=== PATIENT | male | born 1970 | race Caucasian/White ===

== ENCOUNTER 2018-04-04 20:49 | Emergency (ER) | payer OTHER ==
[~2018-04-04] VITALS: Ht 167.6 cm; Wt 72.6 kg
[~2018-04-04 20:49] MED LIST: ACET325 PO; Aspir-Low81 MG PO; CARV6.25 PO; CYCL10 PO; FURO40 PO; HYDACE5 PO; HYDPAM25 PO; LISI20 PO; Norco 5-325 Ta1 EACH PO; SPIR50 PO
[2018-04-04] MEDS ORDERED: Coreg12.5 MG PO (22:19)
[2018-04-04] MEDS ORDERED: Lasix40 MG PO (22:19)
[2018-04-04] MEDS ORDERED: ZESTRIL40 MG PO (22:19)
[2018-04-04] MEDS ORDERED: Aldactone50 MG PO (22:19)
== END 2018-04-04 22:38 | disposition home or self-care (01) ==
LOC: ER 20:49
DX: Z76.0 Encounter for issue of repeat prescription (principal); I25.10 Atherosclerotic heart disease of native coronary artery without angina pectoris; I50.9 Heart failure, unspecified; Z79.899 Other long term (current) drug therapy
CPT/HCPCS: 99281

== ENCOUNTER 2018-08-07 13:18 | Emergency (ER) | payer OTHER ==
[~2018-08-07] VITALS: Ht 167.6 cm; Wt 79.4 kg
[~2018-08-07 13:18] MED LIST changes: +Aldactone50 MG PO; +COLCRYS0.6 MG PO; +Coreg12.5 MG PO; +Lasix40 MG PO; +ZESTRIL40 MG PO
[2018-08-07] MEDS ORDERED: Coreg12.5 MG PO ×2 (13:37→13:45)
[2018-08-07] MEDS ORDERED: ZESTRIL40 MG PO ×2 (13:37→13:45)
[2018-08-07] MEDS ORDERED: Lasix40 MG PO ×2 (13:37→13:45)
[2018-08-07] MEDS ORDERED: Aldactone50 MG PO ×2 (13:37→13:45)
== END 2018-08-07 13:41 | disposition home or self-care (01) ==
LOC: ER 13:18
DX: I11.0 Hypertensive heart disease with heart failure (principal); I50.9 Heart failure, unspecified; Z79.899 Other long term (current) drug therapy

== ENCOUNTER 2018-12-05 09:29 | Emergency (ER) | payer OTHER ==
[~2018-12-05] VITALS: Ht 170.2 cm; Wt 77.1 kg
[2018-12-05] MEDS ORDERED: Coreg12.5 MG PO (10:34)
[2018-12-05] MEDS ORDERED: Aldactone50 MG PO (10:34)
[2018-12-05] MEDS ORDERED: Bactrim Ds Tab1 EACH PO (10:34)
[2018-12-05] MEDS ORDERED: Lasix40 MG PO (10:34)
[2018-12-05] MEDS ORDERED: Zestril40 MG PO (10:34)
== END 2018-12-05 10:54 | disposition home or self-care (01) ==
LOC: ER 09:29
DX: L02.413 Cutaneous abscess of right upper limb (principal); I10 Essential (primary) hypertension; F19.10 Other psychoactive substance abuse, uncomplicated; Z79.899 Other long term (current) drug therapy
CPT/HCPCS: 99282

== ENCOUNTER 2019-01-19 23:21 | Inpatient (IN) | payer OTHER ==
[~2019-01-19] VITALS: Ht 175.3 cm; Wt 72.6 kg
[~2019-01-19 23:21] MED LIST changes: +Bactrim Ds Tab1 EACH PO; +Zestril40 MG PO
[2019-01-19 23:50] LABS: BASOPHILS ABSOLUTE AUTO 0.05 K/mm3 (0.00-0.23); BASOPHILS PERCENT AUTO 0 % (0-2); EOSINOPHILS ABSOLUTE AUTO 0.16 K/mm3 (0.00-0.68); EOSINOPHILS PERCENT AUTO 1 % (0-6); Hematocrit 37.7 % (37.0-53.0); Hemoglobin 10.6 g/dL (13.5-17.5); IMMATURE GRAN ABSOLUTE AUTO 0.53 K/mm3 (0.00-0.10); IMMATURE GRAN PERCENT AUTO 5 % (0-1); LYMPHOCYTES ABSOLUTE AUTO 7.14 K/mm3 (0.84-5.20); LYMPHOCYTES PERCENT AUTO 64 % (21-46); MONOCYTES ABSOLUTE AUTO 0.78 K/mm3 (0.16-1.47); MONOCYTES PERCENT AUTO 7 % (4-13); Mean Corpuscular HGB 27.5 pg (26.0-34.0); Mean Corpuscular HGB Conc 28.1 g/dL (31.5-36.5); Mean Corpuscular Volume 98 fL (80-100); NEUTROPHILS PERCENT AUTO 23 % (41-73); NRBC ABSOLUTE 0.09 K/mm3 (0.00-0.02); NRBC Auto 0.8 /100 WBC (0.0-0.2); Platelet Count 171 K/mm3 (150-400); RDW Coefficient Variation 13.6 % (11.7-14.2); RDW Standard Deviation 49.1 fL (35.1-46.3); Red Blood Cell Count 3.85 M/mm3 (4.30-5.90); White Blood Cell Count 11.16 K/mm3 (4.00-11.30)
[2019-01-19 23:56] LABS: PCO2 Arterial 85.4 mmHg (35-45); pH Blood Arterial <6.80 (7.35-7.45)
[2019-01-20 00:04] LABS: Troponin I <0.015 ng/mL (0.000-0.040)
[2019-01-20 00:05] LABS: Calcium, Ionized (POC) 1.19 mmol/L (1.10-1.46); Chloride (POC) 108 mmol/L (98-108); Creatinine (POC) 1.2 mg/dL (0.8-1.3); Glucose (ISTAT POC) 260 mg/dL (70-99); Hemoglobin (POC) 10.5 g/dL (13.5-17.5); Potassium (POC) 6.7 mmol/L (3.5-5.5); Sodium (POC) 143 mmol/L (135-148); Total CO2 (POC) 22 mmol/L (21-32)
[2019-01-20 00:06] LABS: Alanine Aminotransfer (ALT/SGP 107 U/L (12-78); Albumin, Blood 2.7 g/dL (3.4-5.0); Albumin/Globulin Ratio 0.8 (0.8-1.8); Alk Phos 120 U/L (50-136); Anion Gap 19 mmol/L (6-16); Aspartate Aminotrans (AST/SGOT 177 U/L (12-37); Bilirubin, Total 0.2 mg/dL (0.1-1.0); Blood Urea Nitrogen 22 mg/dL (8-24); CO2, Blood 20 mmol/L (21-32); Calcium, Blood 9.2 mg/dL (8.5-10.1); Chloride, Blood 109 mmol/L (98-108); Globulin, Blood 3.2 g/dL (2.2-4.0); Glomerular Filtration Rate >60 (60-); Glucose, Blood 261 mg/dL (70-99); Potassium, Blood 6.9 mmol/L (3.5-5.5); Sodium, Blood 148 mmol/L (136-145); Total Protein, Blood 5.9 g/dL (6.4-8.2)
[2019-01-20 00:30] LABS: Calcium, Ionized (POC) 1.86 mmol/L (1.10-1.46); Chloride (POC) 107 mmol/L (98-108); Creatinine (POC) 1.3 mg/dL (0.8-1.3); Glucose (ISTAT POC) 311 mg/dL (70-99); Hemoglobin (POC) 8.5 g/dL (13.5-17.5); Potassium (POC) 4.5 mmol/L (3.5-5.5); Sodium (POC) 138 mmol/L (135-148); Total CO2 (POC) 18 mmol/L (21-32)
[2019-01-20 00:37] LABS: Source, Urine Catheter
[2019-01-20 00:39] LABS: Bilirubin, Urine Neg (Neg); Blood, Urine 4+ (Neg); Glucose Qualitative, Urine Neg (Neg); Ketones, Urine Neg (Neg); Leukocyte Esterase, Urine Neg (Neg); Nitrite, Urine Neg (Neg); Protein, Urine Neg (Neg); Urobilinogen, Urine NORM (Normal)
[2019-01-20 00:53] LABS: Appearance, Urine Clear (Clear); Color, Urine Yellow (P-Yellow)
[2019-01-20 00:54] LABS: Bacteria Not Seen /hpf; Hyaline Casts 0-2 /lpf (0-2); Mucus Light (0-Heavy); Red Blood Cells, Urine 25-50 /hpf (0-2); Spermatozoa Few /hpf; Squamous Epithelial Cells Rare /hpf (Few); White Blood Cells, Urine Rare /hpf (0-5)
[2019-01-20 00:56] LABS: PCO2 Arterial 62.7 mmHg (35-45); PO2 Arterial 140 mmHg (80-100); pH Blood Arterial 6.95 (7.35-7.45)
[2019-01-20 01:58] LABS: U Amphetamine Screen DETECTED; U Barbituate Screen Not Detected; U Benzodiazapine Screen Not Detected; U Buprenorphine Screen Not Detected; U Cannabinoids Screen Not Detected; U Cocaine Screen Not Detected; U Methadone Screen Not Detected; U Methamphetamine Screen DETECTED; U Opiates Screen DETECTED; U Oxycodone Screen Not Detected; U Phencyclidine Screen Not Detected; U Propoxyphene Screen Not Detected
--- NOTE | 2019-01-20 02:50 | NUR ---
PT ARRIVED FROM ER VIA GURNEY. ACCOMPANIED BY INSTITUTIONAL CUSTODIAN PAMELA AND BROOKLYNN, AND RT. PT IS INTUBATED. HAS PROPOFOL ON FOR SEDATION. LEVOPHED WAS OFF BUT RESTARTED IN ROOM. NS AT 100ML/HR. PT IS UNRESPONSIVE. PUPILS ARE FIXED WITH UPWARD RIGHT GAZE. PT HAS BRUISE TO L EYE AND IS SWOLLEN. HAS BLOOD COMING FROM HIS NOSE AND MOUTH. ER REPORTS PT HAS A TONGUE LACERATION FROM BITING IT. PT IS MOTTLED AROUND THE KNEES AND FEET. SKIN IS COLD AND CAP REFILL GREATER THAN [address] SHULTZ HERE TO SEE PT AND IS ADJUSTING THE VENT. OG TUBE WAS PLACED TO SUCTION AND GOT 700ML OF YELLOW FLUID OUT QUICKLY. RECTAL PROBE PLACED FOR ACCURATE TEMP. PT IS HYPOTHERMIC. WILL MONITOR TEMP AND COOL WHEN NECESSARY TO KEEP TARGET TEMP.
[2019-01-20 03:33] LABS: Hematocrit 42.8 % (37.0-53.0); Hemoglobin 13.2 g/dL (13.5-17.5); Mean Corpuscular HGB 27.6 pg (26.0-34.0); Mean Corpuscular HGB Conc 30.8 g/dL (31.5-36.5); Mean Platelet Volume 9.2 fL (9.1-12.4); Platelet Count 267 K/mm3 (150-400); RDW Coefficient Variation 13.6 % (11.7-14.2); RDW Standard Deviation 44.7 fL (35.1-46.3); Red Blood Cell Count 4.79 M/mm3 (4.30-5.90); White Blood Cell Count 11.79 K/mm3 (4.00-11.30)
[2019-01-20 03:35] LABS: Mean Corpuscular Volume 89 fL (80-100)
[2019-01-20 04:02] LABS: International Normalized Ratio 1.47
[2019-01-20 04:17] LABS: Albumin, Blood 3.3 g/dL (3.4-5.0); Albumin/Globulin Ratio 0.9 (0.8-1.8); Bilirubin, Total 0.4 mg/dL (0.1-1.0); Bun/Creatinine Ratio 18.7 (12.0-20.0); Creatinine, Blood 1.5 mg/dL (0.60-1.20); Globulin, Blood 3.7 g/dL (2.2-4.0); Potassium, Blood 4.5 mmol/L (3.5-5.5)
[2019-01-20 05:04] LABS: PCO2 Arterial 33.4 mmHg (35-45); PO2 Arterial 371 mmHg (80-100); pH Blood Arterial 7.37 (7.35-7.45)
--- NOTE | 2019-01-20 06:34 | NUR ---
SUMMARY PT INTUBATED AND SEDATED. HAD SEDATION OFF FOR A LITTLE WHILE BUT PT STARTED HAVING EPISODES OFF OPENING EYE'S AND JERKING THAT LOOKS LIKE SEIZURE LIKE ACTIVITY. PUPILS REMAIN FIXED AND HAS UPWARD RIGHT GAZE. GAVE VERSED WELL. NO PURPOSFUL MOVEMENT. LEVOPHED IS OFF. AMIODORONE WAS STARTED. PT HAS MOTTLING AROUND KNEES AND TO FEET. SKIN IS COLD AND CAP REFILL GREATER THAN 3 SECONDS IN FEET. FAMILY IS AT THE BEDSIDE INCLUDING SOME OF HIS SIBLINGS AND DAUGHTER. HIS GIRLFRIEND HAS ALSO BEEN AT THE BEDSIDE SOME OF THE NIGHT. DAUGHTER WAS UPDATED WHEN SHE ARRIVED.
--- NOTE | 2019-01-20 07:30 | NUR ---
ASSUMED CARE OF PT AT 0700. REPORT FROM ANGELICA ARIAS. PT INTUBATED AND SEDATED. VENT SETTINGS AC 20/450/10/50%. PROPOFOL INFUSING AT 15 MCG/KG/MIN. LEVOPHED ON STANDBY AT THIS TIME. AMINODORONE INFUSING AT 1 MCG/MIN, BICARB 75 ML/HR. 3 MM PUPILS, MINIMALLY RESPONSIVE TO LIGHT. NO RESPONSE TO PAINFUL STIMULI. GAG REFLEX ONCE c SUCTIONING, NO COUGH OR SWALLOW. BLOODY DRAINAGE FROM RIGHT NARE AND MOUTH. OGT IN PLACE, SCANT YELLOW EMESIS, LOW INTERMITTANT SUCTION. LUNGS CLEAR, DECREASED LEFT LOWER LOBE. PT PALE. ABD DISTENDED, HYPOACTIVE BT. CENTRAL LINE TO RIGHT GROIN, IO REMOVED FROM RIGHT TIBIA, BILATERAL 18G IVS TO AC'S. COOLING INITIATED, ICE PACKS TO HEAD, AXILLA, AND GROIN. GAYMAR WRAPS TO TRUNK AND COOLING BLANKET APPLIED. GOAL TEMP <96. WILL MAINTAIN MAP >65, TITRATE LEVOPHED NEEDED. JOSE BURCH AND MIKE AT BEDSIDE.
--- NOTE | 2019-01-20 09:15 | NUR ---
UPDATED FAMILY ON PT CONDITION. HR DECREASED FROM 100'S TO 70'S. WILL MONITOR. LEVOPHED AT 9 MCG/MIN. TEMP DECREASING AT THIS TIME.
--- NOTE | 2019-01-20 10:37 | NUR ---
DR SHULTZ IN TO SEE PT AT 1000. DISCUSSED CARE AND CODE STATUS c DAUGHTERS. CONTINUED BRADYCARDIA, PROPOFOL AND AMINODORONE ON STANDBY. PT HAS INTERMITANT EYE OPENING c UPWARD RIGHT GAZE. DOES NOT FOLLOW DIRECTIONS. NO STARTLE REFLEX. MOVEMENT TO LOWER EXTREMITIES. MEDICATED c ATIVAN ORDERED. DECREASED COOLING MEASURES TO MAINTAIN GOAL. ECHO COMPLETE.
--- NOTE | 2019-01-20 12:03 | NUR ---
DIFFICULTIES MANAGING PT'S TEMP, CONTINUES TO DECREASE AFTER ICE PACKS REMOVED AND COOLING STOPPED. PLACED TEMP PROBE MORTON TO ENSURE ACCURATE TEMPS. 89.[address] SHULTZ CONSULTED. STATES TO CONTINUE PASSIVE WARMING, NO ACTIVE WARMING AT THIS TIME.
[2019-01-20 12:28] LABS: Hemoglobin 12.5 g/dL (13.5-17.5); Mean Corpuscular HGB 27.2 pg (26.0-34.0); Mean Corpuscular HGB Conc 31.3 g/dL (31.5-36.5); Mean Corpuscular Volume 87 fL (80-100); Mean Platelet Volume 9.5 fL (9.1-12.4); Platelet Count 263 K/mm3 (150-400); RDW Coefficient Variation 13.8 % (11.7-14.2); RDW Standard Deviation 43.9 fL (35.1-46.3); Red Blood Cell Count 4.59 M/mm3 (4.30-5.90); White Blood Cell Count 18.59 K/mm3 (4.00-11.30)
[2019-01-20 12:47] LABS: International Normalized Ratio 1.49; Prothrombin Time Results 15.2 Sec (9.7-11.5)
[2019-01-20 12:59] LABS: Albumin, Blood 2.8 g/dL (3.4-5.0); Albumin/Globulin Ratio 0.9 (0.8-1.8); BAND PERCENT MAN 13 % (0-8); BASOPHILS PERCENT MAN 0 % (0-2); Bilirubin, Total 0.4 mg/dL (0.1-1.0); Bun/Creatinine Ratio 20.7 (12.0-20.0); Calcium, Blood 9.1 mg/dL (8.5-10.1); Creatine Kinase MB 107.1 ng/mL (0.0-3.6); Creatinine, Blood 2.22 mg/dL (0.60-1.20); EOSINOPHILS PERCENT MAN 0 % (0-6); LYMPHOCYTES ABSOLUTE MAN 1.11 K/mm3 (0.84-5.20); LYMPHOCYTES PERCENT MAN 6 % (21-46); MONOCYTES ABSOLUTE MAN 0.37 K/mm3 (0.16-1.47); MONOCYTES PERCENT MAN 2 % (4-13); Potassium, Blood 3.7 mmol/L (3.5-5.5); SEG NEUTROPHILS PERCENT MAN 79 % (41-73); TOTAL CELLS COUNTED 100; Total Protein, Blood 5.8 g/dL (6.4-8.2)
[2019-01-20 13:12] LABS: Creatine Kinase MB Index 1.7 (0.0-4.0); Troponin I 1.45 ng/mL (0.000-0.040)
[2019-01-20 16:04] LABS: PO2 Arterial 149 mmHg (80-100); pH Blood Arterial 7.24 (7.35-7.45)
--- NOTE | 2019-01-20 17:00 | NUR ---
SO LUCAS STATES THAT PT "USED TWO POINTS OF HEROIN AND DRANK SOME WINE" PRIOR TO SYMPTOMS YESTERDAY. PT ASKS THAT I "DONT TELL THE KIDS."
--- NOTE | 2019-01-20 17:25 | NUR ---
SHIFT SUMMARY. PT REMAINS INTUBATED. PROPOFOL D/C'D THIS SHIFT. PT c INCREASED INTERMITTANT EYE OPENING c RIGHT UPWARD GAZE. MEDICATED c ATIVAN NEEDED AND VALPROIC ACID GIVEN. EPISODES DECREASED DURING SHIFT AFTER MEDS. NO RESPONSE TO PAINFUL STIMULI. PUPILS 3MM c MINIMAL RESPONSE TO LIGHT. GAG REFLEX ONCE THIS SHIFT, UNABLE TO RECIPROCATE. NO SWALLOW OR COUGH. PT REMAINS ON COOLING PROTOCOL. ADJUSTMENTS MADE DURING SHIFT TO MAINTAIN GOAL TEMP. DR SHULTZ AWARE OF TEMP CHANGES. PT BRADYCARDIC THIS SHIFT, AMINODORONE D/C'D. RATE REMAINS 50'S. LEVOPHED TITRATED FOR MAP <65, INFUSING AT 3 MCG/MIN AT THIS TIME. OGT TO LOW INTERMITTANT SUCTION. TEMP PROBE MORTON PATENT AND DRAINING TO GRAVITY. MINIMAL URINARY OUTPUT TODAY, 175ML, DR SHULTZ AWARE. INCREASED NS TO 50ML/HR. PALLATIVE CARE DISCUSSED CODE STATUS c KIERSTEN, DAUGHTER. CODE STATUS CHANGED TO DNR. POLST FORM IN CHART. DONOR TEAM NOTIFIED THIS SHIFT. REVIEWED CHART. WILL RETURN TOMORROW FOR UPDATE. REPORT TO ONCOMING NURSE.
--- NOTE | 2019-01-20 19:02 | NUR ---
Called to meet with patients family regarding prognosis and paln of care. At faheem time we are staying the course will repeat diagnostics in am and dondor team on standby. Me tiwth daughter to review code status and plan of care polst completed for no cpr and to russell on ventilation support. Family in today and processing seriousness of pt condition
--- NOTE | 2019-01-20 20:00 | NUR ---
PT INTUBATED. NO SEDATION. NO RESPONSE TO NOXIOUS STIMULI. EXTREMITIES HAVE SUBTLE TWITCHING THAT IS RANDOM AND COMES AND GOES. LEVOPHED GTT ON, NS AND BICARB GTT WELL. FAMILY AT BEDSIDE. SEE ASSESSMENT.
--- NOTE | 2019-01-20 22:42 | NUR ---
CALLED DR. SHULTZ TO LET HER KNOW PT HAS BEEN OFF LEVOPHED AND BP IS TRENDING 160'S SYSTOLICALLY. NEW ORDERS FOR HYDRALAZINE PRN FOR SBP GREATER THAN 180.
[2019-01-20 23:59] LABS: Hemoglobin 12.4 g/dL (13.5-17.5); Mean Corpuscular HGB 27.9 pg (26.0-34.0); Mean Corpuscular HGB Conc 31.8 g/dL (31.5-36.5); Mean Corpuscular Volume 88 fL (80-100); Mean Platelet Volume 9.6 fL (9.1-12.4); Platelet Count 192 K/mm3 (150-400); RDW Coefficient Variation 13.7 % (11.7-14.2); RDW Standard Deviation 44.2 fL (35.1-46.3); Red Blood Cell Count 4.45 M/mm3 (4.30-5.90); White Blood Cell Count 15.87 K/mm3 (4.00-11.30)
[2019-01-21 00:13] LABS: International Normalized Ratio 1.25
[2019-01-21 00:23] LABS: Albumin, Blood 2.5 g/dL (3.4-5.0); Albumin/Globulin Ratio 0.8 (0.8-1.8); Bilirubin, Total 0.3 mg/dL (0.1-1.0); Bun/Creatinine Ratio 23.1 (12.0-20.0); Calcium, Blood 8.1 mg/dL (8.5-10.1); Creatinine, Blood 2.73 mg/dL (0.60-1.20); Globulin, Blood 3.2 g/dL (2.2-4.0); Potassium, Blood 4.5 mmol/L (3.5-5.5); Total Protein, Blood 5.7 g/dL (6.4-8.2)
[2019-01-21 00:24] LABS: BAND PERCENT MAN 25 % (0-8); BASOPHILS PERCENT MAN 0 % (0-2); EOSINOPHILS PERCENT MAN 0 % (0-6); LYMPHOCYTES ABSOLUTE MAN 0.79 K/mm3 (0.84-5.20); LYMPHOCYTES PERCENT MAN 5 % (21-46); METAMYELOCYTE ABSOLUTE MAN 0.15 K/mm3 (0.00-0.00); METAMYELOCYTE PERCENT MAN 1 % (0-0); MONOCYTES ABSOLUTE MAN 0.95 K/mm3 (0.16-1.47); MONOCYTES PERCENT MAN 6 % (4-13); NEUTROPHILS ABSOLUTE MAN 13.96 K/mm3 (1.96-9.15); SEG NEUTROPHILS PERCENT MAN 63 % (41-73); TOTAL CELLS COUNTED 100
[2019-01-21 00:30] LABS: Troponin I 0.799 ng/mL (0.000-0.040)
--- NOTE | 2019-01-21 06:27 | NUR ---
SUMMARY PT INTUBATED. NO SEDATION. NO PURPOSFUL MOVEMENT. AT TIMES PT BREATHES OVER THE VENT AND THEN HE RIDES THE VENT. IRREGULAR BREATHING PATTERN THIS AM. GAVE ATIVAN AND FENTANYL AT DIFFERENT TIMES DURING THE NIGHT FOR SEDATION WHEN RESP RATE IN THE 30'S-40'S. BP HAS BEEN LABILE THIS AM. WAS OFF OF LEVOPHED FROM 2100 TO 0530. NOW HAVING A DIFFICULT TIME TITRATING DUE TO IT BEING LABILE. SEE FLOWSHEET. THERE WAS AN ORDER OBTAINED EARLIER IN THE NIGHT FOR HYDRALAZINE IF SBP GREATER THAN 180 BUT NEVER HAD TO GIVE IT. PT IS PASSIVELY REWARMING OF 0300 THIS AM. GIRLFRIEND AT THE BEDSIDE ALL NIGHT.
--- NOTE | 2019-01-21 07:24 | NUR ---
PT HAVING RHYTHM CHANGES. DAY RN AND DAY CATERING TRUCK DRIVER IN ROOM TO DO EKG. PULSE PALPABLE. BP IS LABILE ON LEVOPHED. CALLED DAUGHTER KIERSTEN TO INFORM HER OF CHANGES AND SHE IS ON HER WAY IN. DR. SHULTZ ALSO INFORMED OF CHANGES AND NEW ORDERS RECEIVED FOR LABS. REPORT HAS BEEN GIVEN TO JANY RN AND BABAR ARIAS WHO WILL ASSUME CARE.
--- NOTE | 2019-01-21 07:45 | NUR ---
PT ORALLY INTUBATED AND BRIEF ASSESSMENT COMPLETED. PT RHYTHYM CHANGED STARTING AT 07 THROUGH 728. PULSE FAINT AND DOPPLED BY JUANA MAXWELL. BLOOD PRESSURE VERY LOW WHILE IN ARRHYTHMIA. LEVOPHED RATE CHANGED. CHANGES CALLED TO DR SHULTZ AND FAMILY NOTIFIED BY JUANA DOMINGUEZ. PT CONVERTED TO NSR & BECAME HYPERTENSIVE AND LEVOPHED DRIP CHANGED- SEE FLOW CHART. PT DOES MOVE TORSO AND HEAD AT TIMES BUT DOES NOT WITHDRAW FROM PAIN OR FOLLOW COMMANDS.
[2019-01-21 08:17] LABS: Hematocrit 34.1 % (37.0-53.0); Hemoglobin 10.8 g/dL (13.5-17.5); Mean Corpuscular HGB 26.9 pg (26.0-34.0); Mean Corpuscular HGB Conc 31.7 g/dL (31.5-36.5); Mean Platelet Volume 9.9 fL (9.1-12.4); Platelet Count 178 K/mm3 (150-400); RDW Coefficient Variation 13.8 % (11.7-14.2); RDW Standard Deviation 43.2 fL (35.1-46.3); Red Blood Cell Count 4.02 M/mm3 (4.30-5.90); White Blood Cell Count 14.91 K/mm3 (4.00-11.30)
[2019-01-21 08:20] LABS: Mean Corpuscular Volume 85 fL (80-100)
--- NOTE | 2019-01-21 08:20 | NUR ---
TILT PT TO RT SIDE FOR SKIN CARE AND PT HAD ANOTHER EPISODE OF ARRHYTHMIA THAT LASTED APPROXIMATELY 7 MINUTES. DURING THIS EPISODE PT BLOOD PRESSURE DROPPED AND PULSE BECAME WEAK. LEVOPHED DRIP CHANGED TO SUPPORT BP. PT RHYTHYM CONVERED BACK TO NSR AND PT THEN BECAME HYPERTENSIVE. ONCE AGAIN LEVOPHED DRIP ADJUSTED BACK TO 9MCG/HR FOR BP. DR SHULTZ AWARE AND REVIEWED MONITOR STRIPS.
[2019-01-21 08:33] LABS: Bun/Creatinine Ratio 25.4 (12.0-20.0); Calcium, Blood 7.4 mg/dL (8.5-10.1); Creatinine, Blood 2.83 mg/dL (0.60-1.20); Magnesium, Blood 1.8 mg/dL (1.6-2.4)
--- NOTE | 2019-01-21 08:45 | NUR ---
UPDATE- UPDATE GIVEN TO EMMIE-TRANSPLANT. LABS REVIEWED. CALL WITH CHANGES
[2019-01-21 08:58] LABS: BAND PERCENT MAN 20 % (0-8); BASOPHILS PERCENT MAN 0 % (0-2); EOSINOPHILS PERCENT MAN 0 % (0-6); LYMPHOCYTES ABSOLUTE MAN 0.89 K/mm3 (0.84-5.20); LYMPHOCYTES PERCENT MAN 6 % (21-46); METAMYELOCYTE ABSOLUTE MAN 0.59 K/mm3 (0.00-0.00); METAMYELOCYTE PERCENT MAN 4 % (0-0); MONOCYTES ABSOLUTE MAN 0.29 K/mm3 (0.16-1.47); MONOCYTES PERCENT MAN 2 % (4-13); NEUTROPHILS ABSOLUTE MAN 13.12 K/mm3 (1.96-9.15); SEG NEUTROPHILS PERCENT MAN 68 % (41-73); TOTAL CELLS COUNTED 100
[2019-01-21 09:34] LABS: Base Excess Venous -10.7 mmol/L; Bicarbonate Venous 16.3 mmol/L (24.0-30.0); PCO2 Venous 37.8 mmHg (38-42); PO2 Venous 54.1 mmHg (38-42); pH Blood Venous 7.25 (7.34-7.37)
--- NOTE | 2019-01-21 09:50 | NUR ---
Pt visit this AM. Pt appears comfortable with no S/S of distress at this time. Lots of family at bedside. Daughter requests diesel trailer mechanic for spirtual support. No other concerns reported at this time. Called and spoke with nursing apartment maintenance supervisor Mauricio and relayed family request. Spoke with bedside nurse and discussed case. Palliative Care will remain available.
--- NOTE | 2019-01-21 10:30 | NUR ---
PT TURNED TO LEFT SIDE WITH ASSIST X2. PT TOLERATED TURN, RHYTHYM REMAINS NSR, HAD BLOODY ORAL SECRETIONS- SKIN CARE, ORAL CARE, AND SUCTIONING PROVIDED. FAMILY SIGNED CONSENTS FOR PHOTOS AND PICS TAKEN, PRINTED, AND PLACED IN CHART. CONFIRMED WITH CT THAT PT IS STABLE AND PLAN TO TAKE PT AT 1100. FAMILY AWARE OF CT AND IV RATE CHANGES. NS INCREASED TO 100 AND BICARB INCREASED TO 50/HR. NO OTHER CONCERNS VOICED BY FAMILY AT THIS TIME.
--- NOTE | 2019-01-21 10:44 | NUR ---
[address] SHULTZ ABOUT VBG RESULTS AND ORDERS RECEIVED AND PLACE IN SYSTEM. FAMILY UPDATED WITH NEW ORDERS AND WILL TURN PT SOON FOR TRIAL BEFORE GOING TO CT TODAY. DR SHULTZ AWARE OF PALLIATIVE CARE AND PASTORAL CARE CONSULTS. FAMILY PLEASED WITH PLAN OF CARE AT THIS TIME.
--- NOTE | 2019-01-21 11:02 | NUR ---
Spiritual Care note: Called in Early Wednesday AM to be with paniced family in ED. GF and her sister were present at that time. Prayer and emotional support given. Called in this AM to provide prayer/comfort to dtrs and GF at bedside. There appears to be some tension between family and GF. They are not speaking. Dtrs appear calm and states they are awaiting test results to determine plan going forward. Affirmaed obvious love and provided prayer. Facilitated reminicsing and story-telling with dtrs. More family arriving this afternoon. Per physician prognosis poor. I will hang around a bit to see what happens today.
[2019-01-21 12:07] LABS: Hematocrit 31.3 % (37.0-53.0); Hemoglobin 10.3 g/dL (13.5-17.5); Mean Corpuscular HGB 27.5 pg (26.0-34.0); Mean Corpuscular HGB Conc 32.9 g/dL (31.5-36.5); Mean Corpuscular Volume 84 fL (80-100); Mean Platelet Volume 10.3 fL (9.1-12.4); Platelet Count 192 K/mm3 (150-400); RDW Standard Deviation 43.1 fL (35.1-46.3); Red Blood Cell Count 3.74 M/mm3 (4.30-5.90); White Blood Cell Count 13.99 K/mm3 (4.00-11.30)
[2019-01-21 12:24] LABS: International Normalized Ratio 1.25
[2019-01-21 12:28] LABS: Albumin, Blood 2.1 g/dL (3.4-5.0); Albumin/Globulin Ratio 0.8 (0.8-1.8); Bilirubin, Total 0.3 mg/dL (0.1-1.0); Bun/Creatinine Ratio 26.4 (12.0-20.0); Calcium, Blood 7.3 mg/dL (8.5-10.1); Creatinine, Blood 2.99 mg/dL (0.60-1.20); Globulin, Blood 2.5 g/dL (2.2-4.0); Potassium, Blood 4.4 mmol/L (3.5-5.5); Total Protein, Blood 4.6 g/dL (6.4-8.2); Troponin I 0.372 ng/mL (0.000-0.040)
--- NOTE | 2019-01-21 12:46 | NUR ---
DR SHULTZ AND SUPERVISOR FURNACE ROOM DISCUSSED CT RESULTS AND END OF LIFE PLANNING WITH FAMILY. SUPPORT PROVIDED BY STAFF AND SUPERVISOR FURNACE ROOM.
[2019-01-21 12:52] LABS: BAND PERCENT MAN 25 % (0-8); BASOPHILS PERCENT MAN 0 % (0-2); EOSINOPHILS PERCENT MAN 0 % (0-6); LYMPHOCYTES ABSOLUTE MAN 1.11 K/mm3 (0.84-5.20); LYMPHOCYTES PERCENT MAN 8 % (21-46); METAMYELOCYTE ABSOLUTE MAN 0.41 K/mm3 (0.00-0.00); METAMYELOCYTE PERCENT MAN 3 % (0-0); MONOCYTES PERCENT MAN 0 % (4-13); NEUTROPHILS ABSOLUTE MAN 12.45 K/mm3 (1.96-9.15); SEG NEUTROPHILS PERCENT MAN 64 % (41-73); TOTAL CELLS COUNTED 100
--- NOTE | 2019-01-21 13:52 | NUR ---
FAMILY AT BEDSIDE, REQUESTING COMFORT MEASURES, EXTUBATION. DR. SHULTZ HERE-COMFORT MEASURES ORDERED. TRANSPLANT BANK WAS NOTIFIED-JULY WITHDRAW. REVIEWED PLAN OF CARE WITH FAMILY, CONCERNED REGARDING POSSIBILITY OF PAIN-WILL PROVIDE PAIN RX
--- NOTE | 2019-01-21 14:20 | NUR ---
PT HEAVILY ORAL SX AND DEEP ETT SX, PT EXTUBATED TO COMFORT AT 1400 WITHOUT ISSUE.
--- NOTE | 2019-01-21 14:25 | NUR ---
Supportive visit for family during withdraw of care. Family tearful throughout visit. Pt has peaceful and comfortable passing. Family has chosen [facility]. Notfied nursing mine supervisor of family choice. Will remain available.
--- NOTE | 2019-01-21 14:30 | NUR ---
PT EXTUBATED BY RT. JANY MARIE, RN, PASTORAL CARE, AND PALLIATIVE CARE AT THE BEDSIDE. PT FAMILY BRIEFLY STEPPED OUT OF THE ROOM DURING PROCEDURE. ALL FAMILY WHO THEN WISHED TO BE AT THE PT BEDSIDE CAME INTO ROOM AND SUPPORT PROVIDED BY STAFF. PT TIME OF 1440. FAMILY TALKING AND COMFORTING EACH OTHER WITH STAFF NEARBY FOR SUPPORT. FAMILY REMOVED ALL OF THEIR BELONGINGS BEFORE LEAVING THE HOSPITAL. INFORMED DAUGHTER, JACK, WE WILL CALL HER IF NEEDED. FAMILY CHOSE [facility].
--- NOTE | 2019-01-21 14:45 | NUR ---
CALLED DR VYAS AND SPOKE WITH DR SHULTZ R/T PT . ALSO TISSUE DONATION CALLED AND REQUESTED INFORMATION FAXED TO [facility].
--- NOTE | 2019-01-21 14:50 | NUR ---
Spiritual care note: Present with family pre-extubation throughout TOD. Facilitated family prayer at [facility]. Christiano passed peacefully with a great deal of love. Gentle bereavement counselor marriage and family and recommendations given. Family selected [facility] for arrangements.
--- NOTE | 2019-01-21 15:25 | NUR ---
[facility] DECLINED DONATION.
== END 2019-01-21 16:40 | DRG 308 ==
LOC: ER 23:21 → ICUW 01-20 02:31
PROVIDERS: Emergency Medicine; Internal Medicine Critical Care Medicine; ADMIT Internal Medicine
PROC: 0BH18EZ Insertion of Endotracheal Airway into Trachea, Via Natural or Artificial Opening Endoscopic (ICD-10-PCS; principal; 2019-01-19)
PROC: 5A1945Z Respiratory Ventilation, 24-96 Consecutive Hours (ICD-10-PCS; 2019-01-19)
DX: I49.01 Ventricular fibrillation (principal); S22.5XXA Flail chest, initial encounter for closed fracture; J96.01 Acute respiratory failure with hypoxia; G93.6 Cerebral edema; I63.9 Cerebral infarction, unspecified; G93.5 Compression of brain; I50.23 Acute on chronic systolic (congestive) heart failure; E87.2 Acidosis; N17.9 Acute kidney failure, unspecified; G93.1 Anoxic brain damage, not elsewhere classified; Z51.5 Encounter for palliative care; I46.8 Cardiac arrest due to other underlying condition; R40.2432 Glasgow coma scale score 3-8, at arrival to emergency department; I47.2 Ventricular tachycardia; M10.9 Gout, unspecified; I25.10 Atherosclerotic heart disease of native coronary artery without angina pectoris; E87.5 Hyperkalemia; R04.0 Epistaxis; R56.9 Unspecified convulsions; I25.5 Ischemic cardiomyopathy; R00.1 Bradycardia, unspecified; I11.0 Hypertensive heart disease with heart failure
CPT/HCPCS: 31500; 31720; 36415; 36556; 36600; 51702; 51703; 70450; 71045; 80047; 80048; 80053; 81001; 82550; 82553; 82803; 82947; 83605; 83735; 83880; 84484; 85014; 85025; 85027; 85610; 85730; 87070; 87077; 87147; 87186; 87205; 92950; 93005; 93010; 93306; 94002; 94003; 94644; 96365-59; 96367; 96375; 96375-59; 96376; 99291-25; 99292; C1751; C9113; J0282; J0461; J1265; J1650; J1815; J2060; J2250; J2704; J3010; J3475; J7030; J7040; J7060; J7799